=== PATIENT | female | born 1980 | race Caucasian/White ===

== ENCOUNTER 2017-11-17 12:54 | Emergency (ER) | payer OTHER ==
[~2017-11-17] VITALS: Ht 152.4 cm; Wt 68.6 kg
[2017-11-17 13:20] LABS: HEMATOCRIT 40.7 % (36.0-46.0); HEMOGLOBIN 13.4 G/DL (11.9-15.5); MCH 28.2 PG (29.0-34.0); MCHC 32.9 G/DL (30.0-36.0); MCV 85.7 FL (83-99); PLATELET COUNT 283 K/uL (156-360); RBC DIS.WIDTH-CV 13.4 % (11.8-14.6); RBC DIS.WIDTH-SD 42.2 % (39-53); RED BLOOD COUNT 4.75 M/uL (3.80-5.20)
[2017-11-17 13:31] LABS: ALBUMIN 4.4 g/dL (3.2-4.8); CHLORIDE 102 mEq/L (99-109); SODIUM 138 mEq/L (136-147)
[2017-11-17 13:33] LABS: GLUCOSE 130 mg/dL (70-99); TOTAL PROTEIN 7.2 g/dL (6.4-8.3)
[2017-11-17 13:35] LABS: TOTAL BILIRUBIN 0.2 mg/dL (0.0-1.0)
[2017-11-17 13:37] LABS: ALKALINE PHOSPHATASE 122 IU/L (3-129); CREATININE 0.8 mg/dL (0.6-1.3); GFR ESTIMATE (CALCULATED) > 59 mL/min/
[2017-11-17 13:38] LABS: UREA NITROGEN (BUN) 11 mg/dL (9-23)
[2017-11-17 13:39] LABS: AST (GOT) 16 IU/L (2-34)
[2017-11-17 13:40] LABS: ALT (GPT) 14 IU/L (3-49)
[2017-11-17 13:45] LABS: QUANTITATIVE HCG < 4.0 MIU/ML
[2017-11-17 14:11] LABS: APPEARANCE BLOODY ((CLEAR)); BILIRUBIN SMALL; BLOOD LARGE; COLOR BLOODY ((YELLOW)); GLUCOSE (STRIP) NEGATIVE; KETONES NEGATIVE; LEUKOCYTES SMALL; NITRITE NEGATIVE; PROTEIN (STRIP) 100; UROBILINOGEN 0.2 MG/DL (0.2-1.0)
[2017-11-17 14:27] LABS: RED BLOOD CELLS TNTC /HPF (0-5); UCUL ADDED? YES
[2017-11-17] MEDS ORDERED: MACROBID100 MG PO (16:28)
[2017-11-17] MEDS ORDERED: TRAMADOL HCL50 MG PO (16:44)
[2017-11-17 16:50] VITALS: BP 125/75
[2017-11-18] MEDS ORDERED: PERCOCET 5/31 TABLET PO (03:48)
== END 2017-11-17 16:50 | disposition home or self-care (01) ==
LOC: EME 12:54
DX: N20.0 Calculus of kidney (principal); Z87.442 Personal history of urinary calculi
CPT/HCPCS: 74176; 80053; 81003; 84702; 85027; 87086; 99281; 99283

== ENCOUNTER 2017-11-18 01:15 | Emergency (ER) | payer OTHER ==
[~2017-11-18] VITALS: Ht 152.4 cm; Wt 68.5 kg
[~2017-11-18 01:15] MED LIST: MACROBID100 MG PO; TRAMADOL HCL50 MG PO
[2017-11-18 01:52] LABS: APPEARANCE CLOUDY ((CLEAR)); BILIRUBIN NEGATIVE; BLOOD LARGE; COLOR AMBER ((YELLOW)); GLUCOSE (STRIP) NEGATIVE; KETONES 20; LEUKOCYTES TRACE; NITRITE NEGATIVE; PROTEIN (STRIP) 100; SPECIFIC GRAVITY 1.021 (1.000-1.030); UROBILINOGEN 0.2 MG/DL (0.2-1.0)
[2017-11-18 01:57] LABS: HEMATOCRIT 40.3 % (36.0-46.0); HEMOGLOBIN 13.5 G/DL (11.9-15.5); MCH 28.4 PG (29.0-34.0); MCHC 33.5 G/DL (30.0-36.0); MCV 84.8 FL (83-99); PLATELET COUNT 293 K/uL (156-360); RBC DIS.WIDTH-CV 13.4 % (11.8-14.6); RBC DIS.WIDTH-SD 41.7 % (39-53); RED BLOOD COUNT 4.75 M/uL (3.80-5.20); WHITE BLOOD COUNT 15.6 K/uL (4.1-10.2)
[2017-11-18 02:12] LABS: CHLORIDE 102 mEq/L (99-109); POTASSIUM 4.1 mEq/L (3.7-5.4); SODIUM 137 mEq/L (136-147)
[2017-11-18 02:14] LABS: GLUCOSE 146 mg/dL (70-99)
[2017-11-18 02:18] LABS: CREATININE 0.8 mg/dL (0.6-1.3); GFR ESTIMATE (CALCULATED) > 59 mL/min/
[2017-11-18 02:19] LABS: UREA NITROGEN (BUN) 13 mg/dL (9-23)
[2017-11-18 02:29] LABS: RED BLOOD CELLS TNTC /HPF (0-5); UCUL ADDED? YES
[2017-11-18] MEDS ORDERED: PERCOCET 5/31 TABLET PO (03:48)
[2017-11-18 04:13] VITALS: BP 147/114
== END 2017-11-18 04:14 | disposition home or self-care (01) ==
LOC: EME 01:15
DX: N13.2 Hydronephrosis with renal and ureteral calculous obstruction (principal); Z87.442 Personal history of urinary calculi
CPT/HCPCS: 74176; 80048; 81003; 85027; 87086; 99281; 99285; J7030